=== PATIENT | male | born 1970 | race Caucasian/White ===

== ENCOUNTER 2025-07-24 16:08 | Emergency (ER) | payer MEDICARE, MEDICAID ==
[~2025-07-24] VITALS: Ht 175.3 cm; Wt 73.9 kg
[~2025-07-24 16:08] MED LIST: ACET-2030 PO; ASCO100058 PO; ATOM25CA PO; BENZ1TAB7 PO; BREX4TAB PO; BUSP10TA35 PO; CARB200T8 PO; DIVA500T2 PO; DOCU100T2 PO; ERGO500093 PO; FERR324T4 PO; FLUO20CA42 PO; FLUT16SP16 BNOSTRILS; FOLI0.4T6 PO; HALO2TAB2 PO; IBUP-1953 PO; ILOP8TAB2 PO; LEVE500T20 PO; MAGN200T5 PO; OXCA150T13 PO; PATI8.4P MT; VORT10TA PO
[2025-07-24 16:10] VITALS: BP 99/50; TEMP 98.4; O2SAT 98
[2025-07-24 16:46] LABS: PLATELET COUNT (AUTO) 235 K/uL (150-450); RED BLOOD CELL COUNT(AUTO) 3.62 MIL/uL (4.5-6.0); RED CELL DISTRIBUTION WIDTH 13.7 % (11.5-15.0); WHITE BLOOD COUNT (AUTO) 4.2 K/uL (4.3-11.0)
[2025-07-24 16:47] LABS: APPEARANCE,URINE CLEAR (CLEAR); BLOOD, URINE Moderate Ery/uL (NEGATIVE); LEUKOCYTE ESTERASE ,URINE Negative (NEGATIVE); UGLUCOSE Negative (NEGATIVE)
[2025-07-24 16:51] LABS: ADD URINE CULTURE NO; NITRITE, URINE NEGATIVE (NEGATIVE); SQUAMOUS EPITHELIAL CELL,UR Rare /HPF (None Seen)
[2025-07-24 16:53] LABS: CALCIUM, SERUM 8.6 mg/dL (8.5-10.1); CREATININE 1.0 mg/dL (0.6-1.3); SODIUM SERUM 135 mmol/L (136-145); UREA NITROGEN, BLOOD 18 mg/dL (7-18)
[2025-07-24 16:55] LABS: AMPHETAMINE, URINE NEGATIVE (NEGATIVE); BARBITURATE, URINE NEGATIVE (NEGATIVE); BENZODIAZEPINE, URINE NEGATIVE (NEGATIVE); CANNABINOID, URINE NEGATIVE (NEGATIVE); COCCAINE, URINE NEGATIVE (NEGATIVE); OPIATE, URINE NEGATIVE (NEGATIVE)
[2025-07-24 16:59] LABS: ASPARTATE AMINOTRANSFERASE 12 U/L (15-37); TOTAL PROTEIN, SERUM 6.1 g/dL (6.4-8.2)
[2025-07-24 17:23] LABS: ALCOHOL, BLOOD < 3 mg/dL (0-10)
[2025-07-24] MEDS: LORAZEPAM INJ 2 MG/ML VIAL IM ONE (20:00)
[2025-07-24] MEDS: OLANZAPINE 10 MG VIAL IM ONE (20:00)
== END 2025-07-24 23:08 ==
LOC: ER 16:23
DX: R45.6 Violent behavior (principal); G40.909 Epilepsy, unspecified, not intractable, without status epilepticus; Z03.89 Encounter for observation for other suspected diseases and conditions ruled out; Z79.899 Other long term (current) drug therapy; Z87.820 Personal history of traumatic brain injury; Z88.0 Allergy status to penicillin; Z86.59 Personal history of other mental and behavioral disorders; Z20.822 Contact with and (suspected) exposure to COVID-19
CPT/HCPCS: 36415; 80048-TC; 80076-TC; 81001; 85025-TC; 87081-TC; G0480